=== PATIENT | male | born 1980 | race Two or more races ===

== ENCOUNTER 2018-05-24 10:24 | Inpatient (IN) | payer MEDICAID ==
[~2018-05-24] VITALS: Ht 170.2 cm; Wt 126.0 kg
[2018-05-24 12:12] LABS: Eosinophils # (auto) 0.1 uL; Hematocrit 52.8 % (41.0-53.0); Nucleated Red Blood Cells % 0.1 %
[2018-05-24 12:14] LABS: Basophils # (auto) 0 uL; Basophils % (auto) 0.3 % (0.0-2.0); Eosinophils % (auto) 0.4 % (0.0-7.0); Hemoglobin 17.9 g/dL (13.5-17.5); Lymphocytes # (auto) 1.7 uL; Lymphocytes % (auto) 12.6 % (10.0-50.0); Mean Corpuscular Hemoglobin 29.5 pg (28.0-32.0); Mean Corpuscular Hgb Conc. 33.9 g/dL (32.0-36.0); Mean Corpuscular Volume 86.8 fL (80.0-100.0); Monocytes # (auto) 1.2 uL; Monocytes % (auto) 9.1 % (0.0-12.0); Neutrophils # (auto) 10.5 uL; Neutrophils % (auto) 77.6 % (37.0-80.0); Platelet Count (auto) 293 10^3/uL (140-450); Red Blood Cells 6.09 10^6/uL (4.5-5.90); Red Cell Distribution Width 14.1 % (11.8-14.3); White Blood Cell 13.5 10^3/uL (4.4-10.8)
[2018-05-24 12:18] LABS: Urine Bacteria NONE SEEN /hpf (None Seen); Urine Blood Negative /uL (Negative); Urine Mucus FEW (None Seen); Urine Specific Gravity 1.021 (1.001-1.035); Urine WBC 1 /hpf (0 - 3)
[2018-05-24 12:33] LABS: Albumin 3.3 g/dL (3.4-5.0); BUN/Creatinine Ratio 11.9; Potassium 3.9 mmol/L (3.5-5.1)
[2018-05-24 12:36] LABS: Bilirubin, Total 1.3 mg/dL (0.2-1.0); Total Protein 7.7 g/dL (6.4-8.2)
[2018-05-24] MEDS ORDERED: cefTRIAXone SOD 1,000 MG VL IM ONE (12:45)
[2018-05-24] MEDS ORDERED: SODIUM CHLORIDE 0.9% 1,000 ML IV ONE ×2 (13:26)
[2018-05-24] MEDS ORDERED: MORPHINE SULFATE 4 MG/ML SYR/VIAL IV ONE (13:30)
[2018-05-24] MEDS ORDERED: ONDANSETRON HCL 4 MG/2 ML VIAL IV ONE (13:30)
[2018-05-24] MEDS ORDERED: cefTRIAXone 1GM/10ml IVPUSH 10 ML IV ONE (14:15)
[2018-05-24] MEDS ORDERED: ACETAMINOPHEN 500 MG TAB PO PRN (15:15)
[2018-05-24] MEDS ORDERED: traMADol HCL 50 MG TAB PO PRN (15:15)
[2018-05-24] MEDS ORDERED: LORazepam 0.5 MG TAB PO PRN (15:15)
[2018-05-24] MEDS ORDERED: PROMETHAZINE HCL 25 MG/ML 1ML IV PRN (15:15)
[2018-05-24] MEDS ORDERED: MORPHINE SULF INJ 2 MG/ML SYRINGE 1ML IV PRN ×2 (15:15)
[2018-05-24] MEDS ORDERED: NITROGLYCERIN 0.4 MG SL TAB SL PRN (15:15)
[2018-05-24] MEDS: SODIUM CHLORIDE 0.9% 1,000 ML IV SCH ×3 (15:15→22:04)
[2018-05-24] MEDS: FAMOTIDINE (10MG/ML) 2ML VL IV SCH (16:02)
[2018-05-24 16:09] LABS: Partial Thromboplastin Time 30.6 sec (23.78-33.04); Prothrombin Time 10.7 sec (9.27-12.13)
[2018-05-24] MEDS: metroNIDAZOLE 500MG/100ML 100 ML IV SCH ×2 (18:28→23:51)
[2018-05-24 19:40] VITALS: BP_SYST 132; BP_SYST 135; BP_DIAS 75
[2018-05-24] MEDS: TEMAZEPAM 15 MG CAP PO PRN (23:51)
[2018-05-25] MEDS: FAMOTIDINE (10MG/ML) 2ML VL IV SCH ×2 (03:21→15:15)
[2018-05-25] MEDS: SODIUM CHLORIDE 0.9% 1,000 ML IV SCH ×3 (04:12→18:19)
[2018-05-25 05:30] VITALS: BP 136/76
[2018-05-25] MEDS: metroNIDAZOLE 500MG/100ML 100 ML IV SCH ×3 (06:08→18:19)
[2018-05-25 06:33] LABS: Basophils # (auto) 0 uL; Basophils % (auto) 0.5 % (0.0-2.0); Eosinophils # (auto) 0.1 uL; Eosinophils % (auto) 1.4 % (0.0-7.0); Hematocrit 50.5 % (41.0-53.0); Hemoglobin 17.3 g/dL (13.5-17.5); Lymphocytes # (auto) 1.8 uL; Mean Corpuscular Hemoglobin 29.8 pg (28.0-32.0); Mean Corpuscular Hgb Conc. 34.2 g/dL (32.0-36.0); Mean Corpuscular Volume 87.2 fL (80.0-100.0); Neutrophils # (auto) 7.4 uL; Neutrophils % (auto) 71.1 % (37.0-80.0); Nucleated Red Blood Cells % 0.1 %; Platelet Count (auto) 254 10^3/uL (140-450); Red Blood Cells 5.79 10^6/uL (4.5-5.90); Red Cell Distribution Width 14.1 % (11.8-14.3); White Blood Cell 10.4 10^3/uL (4.4-10.8)
[2018-05-25 07:02] LABS: BUN/Creatinine Ratio 9.2; Bilirubin, Total 1.3 mg/dL (0.2-1.0); Calcium 8.2 mg/dL (8.5-10.1); Potassium 3.8 mmol/L (3.5-5.1); Total Protein 7.2 g/dL (6.4-8.2)
[2018-05-25] MEDS: cefTRIAXone 1GM/10ml IVPUSH 10 ML IV SCH (08:21)
[2018-05-25 08:43] VITALS: BP 138/75
[2018-05-25] MEDS ORDERED: ceFAZolin 1GM/50ML 50 ML IV ONE (11:24)
[2018-05-25] MEDS ORDERED: HYDROmorphone HCL 2 MG/ML VL IV PRN (12:45)
[2018-05-25] MEDS ORDERED: KETOROLAC TROMETH 30 MG/ML 1ML VIAL IV ONE (12:45)
[2018-05-25] MEDS ORDERED: fentaNYL CITRATE 100 MCG/2 ML VL ONE (12:57)
[2018-05-25] MEDS ORDERED: MIDAZOLAM HCL 1MG/1ML-2 ML VIAL ONE (12:57)
[2018-05-25] MEDS ORDERED: ONDANSETRON HCL 4 MG/2 ML VIAL ONE (12:57)
[2018-05-25] MEDS ORDERED: PROPOFOL 10 MG/ML 20 ML IV ONE (12:57)
[2018-05-25] MEDS ORDERED: MEPERIDINE HCL (50 MG/ML) 1 ML VIAL ONE (12:57)
[2018-05-25] MEDS ORDERED: SUCCINYLCHOLINE CHLORIDE 20 MG/ML 10ML VIAL IV ONE (12:59)
[2018-05-25] MEDS ORDERED: NEOSTIGMINE 1 MG/ML INJ (10mg/10ML VIAL) IV ONE (12:59)
[2018-05-25] MEDS ORDERED: fentaNYL CITRATE 100 MCG/2 ML VL IV ONE (13:00)
[2018-05-25] MEDS ORDERED: KETOROLAC TROMETH 60MG/2ML VIAL IM ONE (13:33)
[2018-05-25] MEDS ORDERED: GLYCOPYRROLATE 0.2 MG/ML 1ML VIAL ONE (13:33)
[2018-05-25 15:52] VITALS: BP 136/75
[2018-05-25 17:10] VITALS: BP 120/71
[2018-05-25 22:00] VITALS: BP 124/81
[2018-05-26] MEDS: metroNIDAZOLE 500MG/100ML 100 ML IV SCH ×4 (00:13→17:55)
[2018-05-26] MEDS: SODIUM CHLORIDE 0.9% 1,000 ML IV SCH ×4 (00:22→20:29)
[2018-05-26 04:50] VITALS: BP 125/73
[2018-05-26] MEDS: FAMOTIDINE (10MG/ML) 2ML VL IV SCH ×2 (04:59→15:21)
[2018-05-26 06:35] LABS: BUN/Creatinine Ratio 15.2; Calcium 8.9 mg/dL (8.5-10.1); Potassium 4.2 mmol/L (3.5-5.1)
[2018-05-26 08:20] LABS: Basophils # (auto) 0 uL; Basophils % (auto) 0.1 % (0.0-2.0); Eosinophils # (auto) 0 uL; Lymphocytes # (auto) 1.3 uL; Nucleated Red Blood Cells % 0.1 %
[2018-05-26 08:21] LABS: Hematocrit 52.1 % (41.0-53.0); Hemoglobin 17.4 g/dL (13.5-17.5); Lymphocytes % (auto) 8.4 % (10.0-50.0); Mean Corpuscular Hgb Conc. 33.3 g/dL (32.0-36.0); Mean Corpuscular Volume 87.1 fL (80.0-100.0); Monocytes # (auto) 0.7 uL; Monocytes % (auto) 4.7 % (0.0-12.0); Neutrophils # (auto) 13.5 uL; Neutrophils % (auto) 86.8 % (37.0-80.0); Platelet Count (auto) 328 10^3/uL (140-450); Red Blood Cells 5.98 10^6/uL (4.5-5.90); Red Cell Distribution Width 13.9 % (11.8-14.3); White Blood Cell 15.5 10^3/uL (4.4-10.8)
[2018-05-26 09:00] VITALS: BP 129/82
[2018-05-26] MEDS: cefTRIAXone 1GM/10ml IVPUSH 10 ML IV SCH (09:14)
[2018-05-26 13:00] VITALS: BP 137/76
[2018-05-26 17:44] VITALS: BP 133/80
[2018-05-26 21:41] VITALS: BP 135/73
[2018-05-27] MEDS: metroNIDAZOLE 500MG/100ML 100 ML IV SCH ×2 (00:02→06:21)
[2018-05-27] MEDS: TEMAZEPAM 15 MG CAP PO PRN (00:08)
[2018-05-27] MEDS: SODIUM CHLORIDE 0.9% 1,000 ML IV SCH (04:01)
[2018-05-27] MEDS: FAMOTIDINE (10MG/ML) 2ML VL IV SCH (04:02)
[2018-05-27 04:50] VITALS: BP 151/71
[2018-05-27 06:43] LABS: Basophils # (auto) 0.1 uL; Basophils % (auto) 0.5 % (0.0-2.0); Eosinophils # (auto) 0.1 uL; Eosinophils % (auto) 0.6 % (0.0-7.0); Hematocrit 49.9 % (41.0-53.0); Hemoglobin 16.9 g/dL (13.5-17.5); Lymphocytes # (auto) 3.1 uL; Lymphocytes % (auto) 25.4 % (10.0-50.0); Mean Corpuscular Hemoglobin 29.5 pg (28.0-32.0); Mean Corpuscular Hgb Conc. 33.8 g/dL (32.0-36.0); Mean Corpuscular Volume 87.4 fL (80.0-100.0); Monocytes # (auto) 1.1 uL; Neutrophils % (auto) 64.5 % (37.0-80.0); Nucleated Red Blood Cells % 0.1 %; Platelet Count (auto) 301 10^3/uL (140-450); Red Blood Cells 5.71 10^6/uL (4.5-5.90); White Blood Cell 12.3 10^3/uL (4.4-10.8)
[2018-05-27 06:55] LABS: BUN/Creatinine Ratio 17.3; Calcium 8.2 mg/dL (8.5-10.1); Potassium 4.1 mmol/L (3.5-5.1)
[2018-05-27 08:00] VITALS: BP 122/75
[2018-05-27 09:00] VITALS: BP 122/75
[2018-05-27] MEDS: cefTRIAXone 1GM/10ml IVPUSH 10 ML IV SCH (10:11)
== END 2018-05-27 13:00 | disposition home or self-care (01) | DRG 417 ==
LOC: ER 10:24 → TELE 10:25 → TELE-EAST 19:35
PROVIDERS: ADMIT Internal Medicine; ATTEND Internal Medicine
PROC: 5A09357 Assistance with Respiratory Ventilation, Less than 24 Consecutive Hours, Continuous Positive Airway Pressure (ICD-10-PCS; 2018-05-25)
PROC: 0FT44ZZ Resection of Gallbladder, Percutaneous Endoscopic Approach (ICD-10-PCS; principal; 2018-05-25 13:10)
DX: K80.12 Calculus of gallbladder with acute and chronic cholecystitis without obstruction (principal); K85.10 Biliary acute pancreatitis without necrosis or infection; E44.1 Mild protein-calorie malnutrition; R65.10 Systemic inflammatory response syndrome (SIRS) of non-infectious origin without acute organ dysfunction; Z68.41 Body mass index [BMI] 40.0-44.9, adult; E11.9 Type 2 diabetes mellitus without complications; E66.01 Morbid (severe) obesity due to excess calories; F12.90 Cannabis use, unspecified, uncomplicated; K57.90 Diverticulosis of intestine, part unspecified, without perforation or abscess without bleeding; K76.0 Fatty (change of) liver, not elsewhere classified; Z83.3 Family history of diabetes mellitus
CPT/HCPCS: 36415; 71045; 74176; 76705; 80048; 80053; 80061; 81001; 82150; 82247; 83605; 83690; 85025; 85610; 85730; 86850; 86900; 86901; 87040; 96361; 96365; 96375; A6257; J0330; J0690; J0696; J1885; J2250; J2405; J2704; J3490

== ENCOUNTER → 2020-03-09 | Emergency (ER) | payer OTHER ==
[~2020-03-09] VITALS: Ht 177.8 cm; Wt 136.1 kg
[~2020-03-09] MED LIST: CIPR-173 PO; KETOROLAC TROMETH 30 MG/ML 1ML VIAL IV ONE; METR500T14 PO; SODIUM CHLORIDE 0.9% 1,000 ML IVB ONE
[2020-03-09 14:32] LABS: Eosinophils # (auto) 0.1 10 ^3/uL (0-0.8); Monocytes # (auto) 0.5 10 ^3/uL (0-1.3)
[2020-03-09 14:34] LABS: Basophils # (auto) 0 10 ^3/uL (0-0.2); Basophils % (auto) 0.4 % (0.0-2.0); Eosinophils % (auto) 0.8 % (0.0-7.0); Hemoglobin 18.7 g/dL (13.5-17.5); Lymphocytes # (auto) 1.9 10 ^3/uL (0.4-5.4); Lymphocytes % (auto) 15.2 % (10.0-50.0); Mean Corpuscular Hemoglobin 28.9 pg (28.0-32.0); Mean Corpuscular Hgb Conc. 32.9 g/dL (32.0-36.0); Mean Corpuscular Volume 87.8 fL (80.0-100.0); Monocytes % (auto) 4.3 % (0.0-12.0); Neutrophils # (auto) 9.7 10 ^3/uL (1.6-8.6); Neutrophils % (auto) 79.3 % (37.0-80.0); Nucleated Red Blood Cells % 0.2 %; Platelet Count (auto) 296 10^3/uL (140-450); Red Blood Cells 6.49 10^6/uL (4.5-5.90); Red Cell Distribution Width 14.3 % (11.8-14.3); White Blood Cell 12.2 10^3/uL (4.4-10.8)
[2020-03-09 14:44] LABS: Albumin 3.3 g/dL (3.4-5.0); Calcium 8.3 mg/dL (8.5-10.1); Potassium 4.2 mmol/L (3.5-5.1)
[2020-03-09 14:48] LABS: BUN/Creatinine Ratio 19.5; Bilirubin, Total 0.7 mg/dL (0.2-1.0); Total Protein 7.5 g/dL (6.4-8.2)
[2020-03-09 17:28] LABS: Urine WBC None Seen /hpf (0 - 3)
[2020-03-09 17:51] VITALS: BP 115/59
[2020-03-09 18:08] LABS: Urine Bacteria NONE SEEN /hpf (None Seen); Urine Blood Negative /uL (Negative); Urine Specific Gravity 1.017 (1.001-1.035)
== END | disposition home or self-care (01) ==
LOC: EDUNIT# 13:34 → EDBD 13:49 → ER 13:49
DX: R10.84 Generalized abdominal pain (principal); F17.210 Nicotine dependence, cigarettes, uncomplicated; Z90.49 Acquired absence of other specified parts of digestive tract; Z79.2 Long term (current) use of antibiotics; Z79.899 Other long term (current) drug therapy
CPT/HCPCS: 36415; 74176; 80053; 81001; 83690; 85025; 96374; 99284; J1885; J7030